=== PATIENT | male | born 1940 ===

== ENCOUNTER 2025-08-03 08:45 | Outpatient (RCR) | payer OTHER, SELFPAY | END 2025-08-03 09:27 | disposition home or self-care (01) | LOC: ANHCPREHAB 08:45 | PROVIDERS: Visit Provider Internal Medicine Cardiovascular Disease | DX: Z51.89 Encounter for other specified aftercare (principal); Z98.61 Coronary angioplasty status; Z87.891 Personal history of nicotine dependence | CPT/HCPCS: 93798 ==